=== PATIENT | male | born 1950 | race Caucasian/White ===

== ENCOUNTER → 2022-09-14 | Outpatient (CLI) | payer MEDICARE, OTHER ==
[~2022-09-14] MED LIST: ASPIR-LOW81 MG PO; CLARITIN D TAB1 TAB PO; HIGH CHOLESTEROL; LISINOPRIL
== END ==
LOC: COL.RAD 09:15
DX: C61 Malignant neoplasm of prostate (principal)
CPT/HCPCS: A9503